=== PATIENT | male | born 2000 | race Hispanic/Latino ===

== ENCOUNTER 2024-03-24 03:27 | Emergency (ER) | payer SELFPAY ==
[2024-03-24 03:49] LABS: #Basophils 0.1 thou/uL (0.0-0.2); #Eosinophils 0.5 thou/uL (0.0-0.7); #Lymphocytes 3.2 thou/uL (1.20-3.40); #Monocytes 0.7 thou/uL (0.11-0.59); #Neutrophils 4.2 thou/uL (1.40-6.50); %Basophils 1.1 % (0.0-1.0); %Eosinophils 6.1 % (0.0-10.0); %Lymphocytes 36.6 % (21.0-51.0); %Monocytes 8.1 % (0.0-10.0); %Neutrophils 48.2 % (42.0-75.0); Hematocrit 42.1 % (42.0-52.0); Hemoglobin 13.5 g/dL (14.0-18.0); Mean Corpuscular HGB CONC 32.1 g/dL (32.0-36.0); Mean Corpuscular Hemoglobin 27.3 pg (27.0-31.0); Mean Corpuscular Volume 84.9 fl (78.0-98.0); Mean Platelet Volume 8.9 fL (7.4-10.4); Platelet Count 279 10x3/uL (130-400); RBC Distribution Width 11.5 % (11.5-14.5); Red Blood Cell (RBC) Count 4.96 mill/uL (4.70-6.10); White Blood Cell (WBC) Count 8.8 10x3/uL (4.8-10.8)
[2024-03-24 04:05] LABS: Troponin I Less than 0.010 ng/mL (< 0.028)
[2024-03-24 04:06] LABS: ALT (SGPT) 83 U/L (8-55); AST (SGOT) 75 U/L (5-34); Alcohol 194.9 mg/dL (Less than 10); Alkaline Phosphatase 119 U/L (40-110); Anion Gap 19 mmol/L (10-20); BUN (Urea Nitrogen) 13 mg/dL (8.9-20.6); Bilirubin, Total 0.3 mg/dL (0.2-1.2); Calc. Creatinine Clearance 0 mL/min (70-130); Calcium 9.1 mg/dL (7.8-10.44); Carbon Dioxide 18 mmol/L (22-29); Chloride 108 mmol/L (98-107); Estimated GFR 126; Glucose 98 mg/dL (70-105); Lipase 518 U/L (8-78); Potassium 3.9 mmol/L (3.5-5.1); Sodium 141 mmol/L (136-145)
[2024-03-24] MEDS ORDERED: Sodium Chloride 0.9% 1,000 ML ONE (04:18)
[2024-03-24] MEDS ORDERED: Pantoprazole 40 MG VIAL ONE (04:23)
[2024-03-24] MEDS ORDERED: Lactated Ringer's 1,000 ML ONE (05:13)
== END 2024-03-24 05:30 | disposition short-term general hospital (02) ==
LOC: NAV ERS 03:27
DX: K85.90 Acute pancreatitis without necrosis or infection, unspecified (principal); F10.129 Alcohol abuse with intoxication, unspecified; Y90.6 Blood alcohol level of 120-199 mg/100 ml
CPT/HCPCS: 71045; 80053; 80307; 83690; 84484; 85025; 93005; 96374; G0390; J2470; J7030; J7120